=== PATIENT | female | born 1970 | race Caucasian/White ===

== ENCOUNTER 2025-03-22 12:39 | Emergency (ER) | payer BC ==
[~2025-03-22] VITALS: Ht 170.2 cm; Wt 74.4 kg
[2025-03-22 12:44] VITALS: TEMP 97.9
[2025-03-22 13:47] LABS: BASOPHILS % 0.2 % (0.0-1.0); EOSINOPHILS % 1.6 % (0.0-6.0); LYMPHOCYTES % 13.0 % (18.0-39.1); MONOCYTES % 7.7 % (4.4-11.3); NEUTROPHILS % 77.2 % (38.7-80.0); RED CELL DISTRIBUTION WIDTH 12.5 % (11.7-14.4)
[2025-03-22] MEDS: KETOROLAC TROMETHAMINE 30 MG/ML VIAL IV STA (13:56)
[2025-03-22] MEDS: ONDANSETRON HCL INJ 2MG/ML 2ML 2 MG/ML VIAL IV STA (13:56)
[2025-03-22] MEDS: SODIUM CHLORIDE 0.9% 1000ML 1,000 ML IV ONE ×2 (13:57→16:09)
[2025-03-22 14:04] LABS: EST GLOMERULAR FILTRATION RATE 75.0 ML/MIN (>=60)
[2025-03-22] MEDS: FUROSEMIDE INJ 10 MG/ML 4 ML VIAL IV ONE (16:09)
[2025-03-22 17:43] LABS: LEUKOCYTE ESTERASE ,URINE NEGATIVE (NEGATIVE); PROTEIN,URINE DIPSTICK NEGATIVE (NEGATIVE); URINE UROBILINOGEN 0.2 mg/dL (0.2 - 1)
[2025-03-22 17:44] LABS: EPITHELIAL CELLS,URINE RARE /LPF; WBC,URINE (MAN) 0-5 /HPF (0-5)
[2025-03-22 18:36] LABS: EST GLOMERULAR FILTRATION RATE 102.0 ML/MIN (>=60)
[2025-03-22] MEDS ORDERED: ONDANSETRON ODT4 MG PO (18:45)
[2025-03-22 19:14] VITALS: PULSE 72; RESP 18
[2025-03-22 20:02] VITALS: BP 128/86; PULSE 75; O2SAT 100
== END 2025-03-22 19:45 | disposition home or self-care (01) ==
LOC: ER 13:24
DX: R10.13 Epigastric pain (principal); R11.2 Nausea with vomiting, unspecified
CPT/HCPCS: 36415; 74176; 80048; 80053; 81001; 83690; 85025; 93005; 99284; J1885; J1938; J2405; J7030